=== PATIENT | female | born 1950 | race Caucasian/White ===

== ENCOUNTER 2016-09-02 08:58 | Emergency (ER) | payer OTHER ==
[~2016-09-02] VITALS: Ht 160 cm; Wt 119.7 kg
[2016-09-02] MEDS ORDERED: METO12TA PO (09:11)
[2016-09-02] MEDS ORDERED: JANU25TA PO (09:11)
[2016-09-02] MEDS ORDERED: LEVO10VL PO (09:11)
[2016-09-02] MEDS ORDERED: ALBU17IN2 INH (09:11)
[2016-09-02] MEDS ORDERED: ADV100INH INH (09:11)
[2016-09-02] MEDS ORDERED: OMEP40CA2 PO (09:11)
[2016-09-02] MEDS ORDERED: POTA20TA PO (09:11)
[2016-09-02] MEDS ORDERED: TRAN1.5D2 TOP (09:11)
[2016-09-02] MEDS ORDERED: METF500T PO (09:11)
[2016-09-02] MEDS ORDERED: LISI-538 PO (09:11)
[2016-09-02] MEDS ORDERED: TETRACAINE 0.5% OPHTH SOLN 4ML OD ONE (09:45)
[2016-09-02] MEDS ORDERED: FLUORESCEIN OPHTH 1 MG STRIP OD ONE (09:45)
[2016-09-02] MEDS ORDERED: GENTAMICIN 0.3% OPHTH SOL 5 ML BTL OD ONE (10:00)
[2016-09-02 10:02] VITALS: BP 190/89
[2016-09-02] MEDS ORDERED: GENT3OPD OD (10:12)
== END 2016-09-02 10:22 | disposition home or self-care (01) ==
LOC: M ED 09:39
DX: S05.01XA Injury of conjunctiva and corneal abrasion without foreign body, right eye, initial encounter (principal); X58.XXXA Exposure to other specified factors, initial encounter; Y92.099 Unspecified place in other non-institutional residence as the place of occurrence of the external cause; Y93.9 Activity, unspecified; Y99.9 Unspecified external cause status; I25.2 Old myocardial infarction; E11.9 Type 2 diabetes mellitus without complications; I10 Essential (primary) hypertension; E03.9 Hypothyroidism, unspecified; J45.909 Unspecified asthma, uncomplicated; Z98.61 Coronary angioplasty status; E66.9 Obesity, unspecified; Z79.84 Long term (current) use of oral hypoglycemic drugs; Z79.899 Other long term (current) drug therapy; Z88.8 Allergy status to other drugs, medicaments and biological substances; Z88.2 Allergy status to sulfonamides